=== PATIENT | female | born 1965 | race Two or more races ===

== ENCOUNTER 2023-12-31 16:01 | Inpatient (IN) | payer OTHER ==
[~2023-12-31] VITALS: Ht 162.6 cm; Wt 88.9 kg
--- NOTE | 2023-12-31 16:41 | NUR ---
20g Established in the [facility].
--- NOTE | 2023-12-31 16:42 | NUR ---
EDNA AMAYA "From home was going downstairs fell LEFT foot rotated inward given 100 MCG of fentanyl by EMS
--- NOTE | 2023-12-31 17:13 | NUR ---
PAGED DR SOL FOR ORTHO CONSULT
[2023-12-31] MEDS ORDERED: ETOMIDATE 2 MG/ML VIAL ONE (17:17)
--- NOTE | 2023-12-31 17:19 | NUR ---
Move sheet submitted (JEAN PIERRE, stefanie hauser, med surg)
[2023-12-31] MEDS: ETOMIDATE 2 MG/ML VIAL IV ONE (17:45)
[2023-12-31] MEDS ORDERED: MORPHINE SULFATE INJ 4 MG/ML DISP.SYRIN ONE (17:47)
[2023-12-31] MEDS: MORPHINE SULFATE INJ 2 MG/ML DISP.SYRIN IV ONE (18:00)
[2023-12-31] MEDS: CEFEPIME 1 GM in IV D5W 50 ML IV ONE (18:00)
[2023-12-31] MEDS ORDERED: LIVER DETOX PO (18:36)
[2023-12-31] MEDS ORDERED: CHOL200026 PO (18:36)
[2023-12-31] MEDS ORDERED: METHYL B12 PO (18:36)
[2023-12-31] MEDS ORDERED: [UNRECOGNIZED DRUG - REMARK] PO (18:36)
[2023-12-31] MEDS ORDERED: ASCO100058 PO (18:36)
[2023-12-31] MEDS ORDERED: OMEG100037 PO (18:36)
[2023-12-31] MEDS ORDERED: MULT-465 PO (18:36)
[2023-12-31] MEDS ORDERED: Z GUARD REMEDY 4 OZ OINT TP PRN (20:00)
--- NOTE | 2023-12-31 20:02 | NUR ---
REPORT GIVEN TO UBALDO SALTER IN [place] FOR [facility].
[2023-12-31 20:22] LABS: BASOPHILS % (AUTO) 0.2 % (0.0-2.0); EOSINOPHILS # (AUTO) 0.1 K/uL (0.0-0.7); HEMATOCRIT 41 % (33-45); HEMOGLOBIN 13.3 g/dL (11.5-14.8); LYMPHOCYTES # (AUTO) 1.4 K/uL (0.8-4.8); LYMPHOCYTES % (AUTO) 18.4 % (20.0-44.0); MEAN CORPUSCULAR HEMOGLOBIN 29 PG (26.0-33.0); MEAN CORPUSCULAR HGB CONC 33 g/dl (31.0-36.0); MEAN CORPUSCULAR VOLUME 88 fL (82-100); MONOCYTES # (AUTO) 0.5 K/uL (0.1-1.30); MONOCYTES % (AUTO) 6.5 % (2.0-12.0); NEUTROPHILS # (AUTO) 5.8 K/uL (1.8-8.9); NEUTROPHILS % (AUTO) 73.9 % (43.0-81.0); PLATELET COUNT (AUTO) 317 K/uL (150-450); RED BLOOD CELL COUNT(AUTO) 4.62 MIL/uL (4.0-5.2); RED CELL DISTRIBUTION WIDTH 14.4 % (11.5-15.0); WHITE BLOOD COUNT (AUTO) 7.9 K/uL (4.3-11.0)
[2023-12-31 20:34] LABS: ALBUMIN 3.6 g/dL (3.4-5.0); BILIRUBIN,TOTAL 0.4 mg/dL (0.2-1.0); CALCIUM, SERUM 8.3 mg/dL (8.5-10.1); CREATININE 0.9 mg/dL (0.6-1.3); MAGNESIUM 1.8 mg/dL (1.8-2.4); PHOSPHORUS 3.2 mg/dL (2.5-4.9); POTASSIUM 4.2 mmol/L (3.5-5.1); TOTAL PROTEIN, SERUM 6.5 g/dL (6.4-8.2)
[2023-12-31 21:06] LABS: INR 0.93 (0.91-1.10); PARTIAL THROMBOPLASTIN TIME 25.2 SEC (24.3-34.3); PROTHROMBIN TIME 9.9 SECS (9.2-11.1)
[2023-12-31 21:45] VITALS: BP 122/74; TEMP 98.5; O2SAT 95
--- NOTE | 2023-12-31 22:16 | NUR ---
Report given to Gene
--- NOTE | 2023-12-31 22:30 | NUR ---
MS WILDLIFE BIOLOGY TECHNICIAN REPORT RECEIVED PATIENT VIA GURNEY FROM ER AWAKE ACCOMPANIED BY FRIEND, PLACED COMFORTABLY ON BED, BED ON LOW POSITION CALL LIGHTS WITHIN REACH, COMPLAIN OF MODERATE PAIN, ON ROOM AIR SATURATING WELL, PATIENT WITH SPLINT ON LEFT LEG DUE FRACTURE ANKLE, PATIENT IS A/O X4 ABLE TO EXPRESS NEEDS, VERBALLY RESPONSIVE DURING DATA GATHERING, SKIN ASSESSMENT DONE PICTURED TAKEN AND DOCUMENTED, INVENTORIES DONE, SIGNED, PATIENT ORIENTED TO ROOM REMIND TO USE THE CALL LIGHTS WHEN NEEDED ASSISTANCE, ON NPO, POST MIDNIGHT, KEPT CLEAN AND DRY ALL NEEDS MET WILL CONTINUE TO MONITOR.
[2023-12-31 22:59] VITALS: BP 122/75; TEMP 98.4; O2SAT 95
[2023-12-31] MEDS: ONDANSETRON HCL/PF 4 MG/2 ML VIAL IVP PRN (23:06)
[2023-12-31] MEDS: HYDROCODONE/APAP 5/325MG TABLET PO PRN (23:07)
[2023-12-31] MEDS: DOCUSATE SODIUM 100 MG CAPSULE PO SCH (23:07)
[2024-01-01] MEDS: MORPHINE SULFATE INJ 2 MG/ML DISP.SYRIN IV PRN (05:04)
[2024-01-01 06:11] LABS: BASOPHILS % (AUTO) 0.3 % (0.0-2.0); EOSINOPHILS # (AUTO) 0.2 K/uL (0.0-0.7); EOSINOPHILS % (AUTO) 2.3 % (0.0-6.0); HEMATOCRIT 40 % (33-45); HEMOGLOBIN 13.3 g/dL (11.5-14.8); LYMPHOCYTES # (AUTO) 1.6 K/uL (0.8-4.8); LYMPHOCYTES % (AUTO) 22.3 % (20.0-44.0); MEAN CORPUSCULAR HEMOGLOBIN 29 PG (26.0-33.0); MEAN CORPUSCULAR HGB CONC 33 g/dl (31.0-36.0); MEAN CORPUSCULAR VOLUME 89 fL (82-100); MONOCYTES # (AUTO) 0.6 K/uL (0.1-1.30); MONOCYTES % (AUTO) 8.8 % (2.0-12.0); NEUTROPHILS # (AUTO) 4.9 K/uL (1.8-8.9); NEUTROPHILS % (AUTO) 66.3 % (43.0-81.0); PLATELET COUNT (AUTO) 289 K/uL (150-450); RED BLOOD CELL COUNT(AUTO) 4.54 MIL/uL (4.0-5.2); RED CELL DISTRIBUTION WIDTH 14.5 % (11.5-15.0); WHITE BLOOD COUNT (AUTO) 7.3 K/uL (4.3-11.0)
[2024-01-01 06:25] LABS: INR 0.91 (0.91-1.10); PARTIAL THROMBOPLASTIN TIME 25.6 SEC (24.3-34.3); PROTHROMBIN TIME 9.7 SECS (9.2-11.1)
--- NOTE | 2024-01-01 06:25 | NUR ---
MS RN CLOSING NOTES: PATIENT SLEEP IN BED COMFORTABLY, BED IN LOW POSITION CALL LIGHTS WITHIN REACH, NO COMPLAIN OF PAIN AND DISCOMFORT AT THIS TIME, ON ROOM AIR SATURATING WELL, PATIENT IS A/O X4 ABLE TO EXPRESS NEEDS, ON NPO POST MIDNIGHT ON PAIN MANAGEMENT, IV LINE AT RAC#20SL, PATIENT WITH SPLINT WITH ELASTIC BANDAGE AT RIGHT LEG DUE TO FRACTURE ANKLE, ON PAIN MANAGEMENT, ON NPO WITH SCHEDULE ORIF OF LEFT ANKLE, KEPT CLEAN AND DRY ALL NEEDS MET ENDORSE TO INCOMING SHIFT.
[2024-01-01 06:47] LABS: CALCIUM, SERUM 8.9 mg/dL (8.5-10.1); CREATININE 0.9 mg/dL (0.6-1.3); MAGNESIUM 2.1 mg/dL (1.8-2.4); PHOSPHORUS 3.8 mg/dL (2.5-4.9); POTASSIUM 4.1 mmol/L (3.5-5.1)
--- NOTE | 2024-01-01 07:28 | NUR ---
OPENING NOTES RECEIVED PATIENT AWAKE IN BED, A/O X4, ABLE TO MAKE NEEDS KNOWN, BED IN LOW POSITION CALL LIGHTS WITHIN REACH, NO COMPLAIN OF PAIN AND DISCOMFORT AT THIS TIME, ON ROOM AIR SATURATING WELL. MAINTAINED ON NPO FOR SCHEDULED SURGERY THIS AM. IV LINE AT LAC#18G SL, PATIENT WITH SPLINT WITH ELASTIC BANDAGE AT LEFT LEG DUE TO FRACTURED ANKLE. SAFETY MEASURES IN PLACE: BED IN LOW, LOCKED POSITION, RAILS UP X3, HOB ELEVATED. CALL LIGHT AND TABLE WITHIN REACH. PLAN OF CARE ONGOING.
[2024-01-01 07:44] LABS: THYROID STIMULATING HORMONE 9.6 uIU/mL (0.358-3.74)
[2024-01-01] MEDS ORDERED: BUPIVACAINE 0.5 % PF 150 MG/30 ML VIAL ONE (07:50)
[2024-01-01] MEDS ORDERED: ANESTHESIA TRAY IN PYXIS 1 EA TRAY MC ONE (07:50)
[2024-01-01] MEDS ORDERED: VANCOMYCIN 1 GM VIAL ONE (07:50)
--- NOTE | 2024-01-01 08:15 | NUR ---
RN NOTE PATIENT WAS PICKED UP BY SURGERY RN.
[2024-01-01 08:18] VITALS: BP 128/90; TEMP 97.5; O2SAT 98
[2024-01-01] MEDS ORDERED: METOCLOPRAMIDE HCL 10 MG/2 ML VIAL ONE (08:27)
[2024-01-01] MEDS ORDERED: FENTANYL PF 100MCG/2ML AMPUL ONE (08:29)
[2024-01-01 10:26] LABS: THYROID STIMULATING HORMONE 9.95 uIU/mL (0.358-3.74)
[2024-01-01] MEDS ORDERED: MORPHINE SULFATE INJ 4 MG/ML DISP.SYRIN IV PRN (10:30)
[2024-01-01] MEDS ORDERED: HYDROCODONE/APAP 10/325MG TABLET PO PRN (10:30)
[2024-01-01] MEDS: IV NS 0.9% 1,000 ML IV PRN (10:58)
--- NOTE | 2024-01-01 11:15 | NUR ---
RN NOTE PATIENT IS BACK FROM SURGERY, LEFT LEG DRESSING DRY AND INTACT, NO SENSATION ON THE TOES. PLAN OF CARE ONGOING
[2024-01-01] MEDS: ANCEF 1 GM/50 ML D5W IV SCH (16:03)
--- NOTE | 2024-01-01 16:10 | NUR ---
RN NOTE PATIENT VERBALIZED NAUSEA, ZOFRAN ADMINISTERED ORDERED. PLAN OF CARE ONGOING
[2024-01-01 16:19] VITALS: BP 119/80; TEMP 98.4; O2SAT 94
[2024-01-01 16:55] LABS: APPEARANCE,URINE CLEAR (CLEAR); BILIRUBIN,URINE NEGATIVE (NEGATIVE); BLOOD, URINE NEGATIVE Ery/uL (NEGATIVE); COLOR,URINE YELLOW (YELLOW); KETONES,URINE NEGATIVE (NEGATIVE); LEUKOCYTE ESTERASE ,URINE NEGATIVE (NEGATIVE); NITRITE, URINE NEGATIVE (NEGATIVE); PROTEIN,URINE NEGATIVE (NEGATIVE); UGLUCOSE NEGATIVE (NEGATIVE); UROBILINOGEN,URINE 0.2 EU/dL (0.2)
--- NOTE | 2024-01-01 19:06 | NUR ---
CLOSING NOTES PATIENT AWAKE IN BED, A/O X4, ABLE TO MAKE NEEDS KNOWN, BED IN LOW POSITION CALL LIGHTS WITHIN REACH, NO COMPLAINTS OF PAIN AND DISCOMFORT AT THIS TIME. ON ROOM AIR SATURATING WELL. IV LINE AT LAC#18G WITH NS AT 75 ML/HOUR, PATENT, INTACT AND INFUSING WELL. DRESSING DRY AND INTACT ON THE LEFT LEG POST SURGERY. SAFETY MEASURES IN PLACE: BED IN LOW, LOCKED POSITION, SIDE RAILS UP X3, HOB ELEVATED. CALL LIGHT AND TABLE WITHIN REACH. ENDORSE PLAN OF CARE TO SENIOR PENSIONS ADMINISTRATOR NURSE
--- NOTE | 2024-01-01 19:15 | NUR ---
RN OPENING NOTE RECEIVED PATIENT AWAKE IN BED, A/O X4, ABLE TO MAKE NEEDS KNOWN. STABLE ON ROOM AIR.RESPIRATIONS REGULAR AND NONLABORED. IV ACCESS ON LAC#18G, PATENT, INTACT AND INFUSING WELL WITH NS AT 75 ML/HOUR. S/P ORIF OF THE LEFT ANKLE (01/01/24), DRESSING C/D/I. NO COMPLAINTS OF PAIN/DISCOMFORT AT THIS TIME. SAFETY MEASURES IN PLACE: BED IN LOW, LOCKED POSITION, SIDE RAILS UP X2, HOB ELEVATED. CALL LIGHT BUTTON AND TABLE WITHIN REACH.PLAN OF CARE ONGOING.
[2024-01-01 20:00] VITALS: BP 120/75; TEMP 98.2; O2SAT 96
--- NOTE | 2024-01-01 21:26 | NUR ---
RN NOTE PATIENT SAID SHE IS STARTING TO FEEL SENSATION IN HER LEFT ANKLE, LIKE THE ANESTHESIA IS STARTING TO WEAR OFF, AND MIGHT NEED HER PAIN MEDS. SHE ALSO ASKED FOR SLEEPING PILL. DR ALTMAN AT BEDSIDE, MADE ROUNDS AND TALKED WITH PATIENT. MADE ORDERS FOR TEMAZEPAM 7.5 MG ONCE FOR SLEEP. CARRIED OUT. PLAN OF CARE ONGOING.
[2024-01-01] MEDS ORDERED: TEMAZEPAM 7.5 MG CAPSULE PO ONE (22:00)
--- NOTE | 2024-01-01 22:11 | NUR ---
RN NOTES MORPHINE 2MG/1ML IV PRN GIVEN ORDERED PT COMPLAINS OF ANKLE PAIN 01/08. WILL REASSESS IN [address] MIN[address]ES. MEDICATION TAKEN FROM [facility] GAETANO WILKINS DOES NOT HAVE ACCESS.
[2024-01-02] MEDS: TEMAZEPAM 7.5 MG CAPSULE PO ONE (01:41)
--- NOTE | 2024-01-02 02:30 | NUR ---
RN NOTE RECEIVED REPORT FROM GAETANO WILKINS. PT IN STABLE CONDITION. WILL CONTINUE TO CARE FOR PT.
--- NOTE | 2024-01-02 06:32 | NUR ---
MS RN CLOSING NOTE LEFT PATIENT AWAKE IN BED. PT A/O X4, ABLE TO MAKE NEEDS KNOWN. NO COMPLAINT OF PAIN AND DISCOMFORT AT THIS TIME. ON ROOM AIR, TOLERATING WELL. IV ACCESS TO LEFT AC #18G, WITH NS AT 75 ML/HOUR, IV PATENT, INTACT, AND INFUSING WELL. DRESSING DRY AND INTACT ON THE LEFT LEG POST SURGERY. SAFETY MEASURES IN PLACE: BED IN LOW, LOCKED POSITION, SIDE RAILS UP X3, HOB ELEVATED. CALL LIGHT AND TABLE WITHIN REACH. WILL ENDORSE PLAN OF CARE TO MORNING SHIFT NURSE.
[2024-01-02 06:35] LABS: BASOPHILS % (AUTO) 0.2 % (0.0-2.0); EOSINOPHILS % (AUTO) 0.1 % (0.0-6.0); HEMATOCRIT 38 % (33-45); HEMOGLOBIN 12.4 g/dL (11.5-14.8); LYMPHOCYTES # (AUTO) 1.6 K/uL (0.8-4.8); LYMPHOCYTES % (AUTO) 14.1 % (20.0-44.0); MEAN CORPUSCULAR HEMOGLOBIN 29 PG (26.0-33.0); MEAN CORPUSCULAR HGB CONC 33 g/dl (31.0-36.0); MEAN CORPUSCULAR VOLUME 89 fL (82-100); MONOCYTES # (AUTO) 0.8 K/uL (0.1-1.30); MONOCYTES % (AUTO) 7.1 % (2.0-12.0); NEUTROPHILS # (AUTO) 8.8 K/uL (1.8-8.9); NEUTROPHILS % (AUTO) 78.5 % (43.0-81.0); PLATELET COUNT (AUTO) 311 K/uL (150-450); RED BLOOD CELL COUNT(AUTO) 4.24 MIL/uL (4.0-5.2); RED CELL DISTRIBUTION WIDTH 14.5 % (11.5-15.0); WHITE BLOOD COUNT (AUTO) 11.2 K/uL (4.3-11.0)
[2024-01-02 06:52] LABS: CALCIUM, SERUM 8.6 mg/dL (8.5-10.1); CREATININE 0.8 mg/dL (0.6-1.3); POTASSIUM 3.6 mmol/L (3.5-5.1)
--- NOTE | 2024-01-02 07:20 | NUR ---
OPENING NOTES RECEIVED PATIENT AWAKE IN BED, A/O X4, ABLE TO MAKE NEEDS KNOWN, BED IN LOW POSITION CALL LIGHTS WITHIN REACH, NO COMPLAINTS OF PAIN AND DISCOMFORT AT THIS TIME. ON ROOM AIR SATURATING WELL. IV LINE AT LAC#18G WITH NS AT 75 ML/HOUR, PATENT, INTACT AND INFUSING WELL. DRESSING DRY AND INTACT ON THE LEFT LEG POST SURGERY. SAFETY MEASURES IN PLACE: BED IN LOW, LOCKED POSITION, SIDE RAILS UP X3, HOB ELEVATED. CALL LIGHT AND TABLE WITHIN REACH. PLAN OF CARE ONGOING
[2024-01-02 08:00] VITALS: BP 111/77; TEMP 98.2; O2SAT 98
[2024-01-02] MEDS: ENOXAPARIN SODIUM 40 MG/0.4 ML DISP.SYRIN SQ SCH (09:00)
--- NOTE | 2024-01-02 09:00 | NUR ---
RN NOTE PATIENT VERBALIZED SHE USUALLY FEELS NAUSEOUS WITH MORPHINE AND WANTED TO TAKE ZOFRAN, PRN ZOFRAN ADMINISTERED ORDERED. PATIENT IA ALSO SCHEDULED FOR PHYSICAL THERAPY AND PREFERS TO TAKE THE PAIN MEDICATION 30 MINUTES PRIOR TO THE THERAPY. VITAL SIGNS CHECKED WNL. PLAN OF CARE ONGOING
--- NOTE | 2024-01-02 11:41 | NUR ---
RN NOTE PATIENT REFUSED LOVENOX BECAUSE OF IT'S SIDE EFFECTS. EDUCATE PATIENT ABOUT THE BENEFITS OF THE MEDICATION BUT PATIENT VERBALIZED SHE WILL THINK ABOUT IT. PLAN OF CARE ONGOING
[2024-01-02] MEDS ORDERED: APIX5TAB PO (12:17)
[2024-01-02] MEDS ORDERED: HYDR-3980 PO (12:17)
--- NOTE | 2024-01-02 12:35 | NUR ---
dowel pin worker consultation: dowel pin worker consultation requested per patients request. Patient was alert and oriented x3. Patient was calm and cooperative during the assessment. Patient stated she would like brochures to different home health agencies and healthcare manager services that she can enroll her mother in. Patient stated she already has [facility] services being provided. dowel pin worker provided her with brochures to [facility], [facility], and [facility] and patient was accepting of these resources. Patient stated that her mother has recently been diagnosed with Alzheimer and will look into the resources the clinical social work therapist provided to see what services she can obtain. Patient had no further requests or concerns at this time. DC PLAN: dowel pin worker will follow up with CM in regards to patients discharge plan.
--- NOTE | 2024-01-02 15:30 | NUR ---
RN NOTE PATIENT VERBALIZED SHE USUALLY FEELS NAUSEOUS WITH MORPHINE AND WANTED TO TAKE ZOFRAN, PRN WITH IT. ZOFRAN ADMINISTERED ORDERED. PAIN LEVEL 8/10. VITAL SIGNS CHECKED WNL. PLAN OF CARE ONGOING
[2024-01-02 16:00] VITALS: BP 116/78; TEMP 99.1; O2SAT 98
--- NOTE | 2024-01-02 18:00 | NUR ---
RN NOTE VANNA FLORES CALLED, INSURANCE WILL CALL PATIENT REGARDING HOME HEALTH DETAILS. INFORM BIOMEDICAL REPAIR TECHNICIAN JOSÉ PATIENT IS REQUESTING FOR ZOFRAN PART OF DC MEDICATIONS SINCE SHE FEELS NAUSEOUS TAKING PAIN MEDICATION AND BIOMEDICAL REPAIR TECHNICIAN SAID SHE WILL SEND THE PRESCRIPTION TO PHARMACY. TEMPERATURE RECHECKED 97.9. PLAN OF CARE ONGOING
[2024-01-02] MEDS ORDERED: ONDA4TAB5 PO (18:06)
--- NOTE | 2024-01-02 18:15 | NUR ---
DISCHARGE NOTES PATIENT DISCHARGED TO HOME, A/O X4. ON ROOM AIR, BREATHING EVEN AND UNLABORED WITH O2 SATURATION OF 97%, NO ACUTE RESPIRATORY DISTRESS NOTED. VITAL SIGNS CHECKED. PSORIASIS NOTED ON BILATERAL HANDS AND RIGHT SOLE. DRESSING ON LLE DRY AND INTACT. BELONGINGS LIST CHECKED AND SIGNED BY PATIENT. DISCHARGE INSTRUCTIONS GIVEN TO THE PATIENT AND VERBALIZED UNDERSTANDING. NAME ARM BAND REMOVED. INSTRUCTED PATIENT TO CONTACT DR SOL FOR FOLLOW UP VISIT AND DRESSING CHANGE IN 3 DAYS AND SET UP A FOLLOW UP VISIT, PATIENT VERBALIZED UNDERSTANDING. PATIENT LEFT THE UNIT VIA WHEELCHAIR WITH NO SIGNS OF DISTRESS ACCOMPANIED BY NEFTALI VELÁSQUEZ AND RN. PATIENT WAS PICKED UP BY COUSIN. CHARGE NURSE JAZLYN AWARE OF DISCHARGE
== END 2024-01-02 18:15 | disposition home health service (06) | DRG 313 ==
LOC: ER 16:03 → TELE1 19:01 → TELE 20:50 → MED 21:46
PROVIDERS: ATTEND Nurse Practitioner Acute Care
PROC: 0QSKXZZ Reposition Left Fibula, External Approach (ICD-10-PCS; 2023-12-31)
PROC: 0QSHXZZ Reposition Left Tibia, External Approach (ICD-10-PCS; 2023-12-31)
PROC: 0QSK04Z Reposition Left Fibula with Internal Fixation Device, Open Approach (ICD-10-PCS; principal; 2024-01-01)
PROC: 0QSHXZZ Reposition Left Tibia, External Approach (ICD-10-PCS; 2024-01-01)
DX: S82.842B Displaced bimalleolar fracture of left lower leg, initial encounter for open fracture type I or II (principal); E66.9 Obesity, unspecified; W01.0XXA Fall on same level from slipping, tripping and stumbling without subsequent striking against object, initial encounter; E78.5 Hyperlipidemia, unspecified; Z68.33 Body mass index [BMI] 33.0-33.9, adult; Y93.9 Activity, unspecified; Y92.009 Unspecified place in unspecified non-institutional (private) residence as the place of occurrence of the external cause
CPT/HCPCS: 36415; 71045-TC; 73600-TC; 73610-TC; 80048-TC; 80053-TC; 80061-TC; 83735-TC; 84100-TC; 84439-TC; 84443-TC; 84481; 85025-TC; 85610-TC; 85730-TC; 86850-TC; 93307-TC; 97116-TC; 97530-TC; A4223; A6402; C1713; G0378; J0690; J0692; J1100; J1650; J1885; J2270; J2405; J2704; J2765; J3010; J3370; J3490; J7030; J7060